=== PATIENT | female | born 1965 | race Caucasian/White ===

== ENCOUNTER 2019-12-05 20:12 | Emergency (ER) | payer BC, OTHER ==
[2019-12-05] MEDS ORDERED: methylPREDNISolone Sodium Succinate 125 MG/2 ML SDV IVPUSH ONE (20:18)
[2019-12-05] MEDS ORDERED: EPINEPHrine 1 MG/ML SDV SUBCUT ONE (20:18)
--- NOTE | 2019-12-05 20:51 | EDM.PDOC ---
ED HPI GENERAL MEDICAL PROBLEM - General Chief Complaint: Allergic Reaction Stated Complaint: BEE STING Time Seen by Provider: 12/05/19 20:30 Source of Information: Reports: Patient, Family History Limitations: Reports: No Limitations - History of Present Illness INITIAL COMMENTS - FREE TEXT/NARRATIVE: 54-year-old female who was stung on the back of the left leg 1-1/2 hours ago by a bee or wasp, now has some systemic symptoms. It started within 10 to 15 minutes with burning in her hands, she now has shallow scattered hives on her arms abdomen and upper chest. She feels like her throat is tight but not short of breath, no wheezing or cough. Denies dizziness or lightheadedness but she is very anxious. She has had no previous reactions to bee stings. She is otherwise healthy. Onset: Sudden Duration: Hour(s): (1-1/2 hours ago) Location: Reports: Other (Initial sting was on the back of her left leg) Associated Symptoms: Reports: Other (Very anxious, feels a tightening in her throat and having generalized macular erythema with some hives). 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: Psychiatric History: Reports: Anxiety Endocrine/Metabolic History: Reports: Hypothyroidism - Past Surgical History Female Surgical History: Reports: Section, Hysterectomy Social & Family History - Tobacco Use Smoking Status *Q: Never Smoker - Caffeine Use Caffeine Use: Reports: Coffee - Alcohol Use Days Per Week of Alcohol Use: 2 Number of Drinks Per Day: 2 Total Drinks Per Week: 4 - Recreational Drug Use Recreational Drug Use: No ED ROS ALLERGIC REACTION - Review of Systems Review Of Systems: See Below Constitutional: Denies: Fever, Chills HEENT: Reports: Other (Sensation of tightness) Respiratory: Denies: Shortness of Breath, Wheezing Cardiovascular: Denies: Chest Pain Skin: Reports: Erythema, Urticaria Neurological: Reports: No Symptoms. Denies: Headache Psychiatric: Reports: Anxiety ED EXAM GENERAL NO PERIP PULSE - Physical Exam Exam: See Below Exam Limited By: No Limitations General Appearance: Alert, No Apparent Distress Eye Exam: Bilateral Eye: Normal Inspection Throat/Mouth: Normal Inspection Head: Atraumatic Respiratory/Chest: No Respiratory Distress, Lungs Clear Cardiovascular: Regular Rate, Rhythm Extremities: Other (Small sting nikos on the back of the left calf, no surrounding erythema.) Psychiatric: Anxious Skin Exam: Other (Generalized macular erythematous lesions on the arms abdomen and upper chest with some embedded urticarial lesions, very mild) Course - Vital Signs Last Recorded V/S: Last Vital Signs Temp 96.9 F 12/05/19 20:27 Pulse 90 12/05/19 21:12 Resp 20 12/05/19 21:12 BP 111/64 12/05/19 21:12 Pulse Ox 96 12/05/19 21:12 - Orders/Labs/Meds Meds: Medications Discontinued Medications Generic Name Dose Route Start Last Admin Trade Name Tamika PRN Reason Stop Dose Admin Epinephrine HCl 0.3 mg 12/05/19 20:18 12/05/19 20:19 Adrenalin SUBCUT 12/05/19 20:19 0.3 mg ONETIME ONE Administration Methylprednisolone Sodium Succinate 125 mg 12/05/19 20:18 12/05/19 20:26 Solu-Medrol IVPUSH 12/05/19 20:19 125 mg ONETIME ONE Administration - Re-Assessments/Exams Free Text/Narrative Re-Assessment/Exam: 12/05/19 20:51 Patient was given 0.3 mg of epinephrine subcutaneously, and IV started and she was also given 125 mg of Solu-Medrol. She is already taken 75 mg of oral Benadryl. She remained stable. 12/05/19 21:05 Patient had fairly rapid resolution of her rash and symptoms after the epinephrine, was observed for an additional 45 minutes and was stable. She was given a prescription for an EpiPen to fill tomorrow and will continue Benadryl as needed for persistent symptoms. Departure - Departure Time of Disposition: 21:22 Disposition: Home, Self-Care 01 Clinical Impression: Allergic reaction to bee sting - Discharge Information Instructions: Bee, Wasp, or Hornet Sting, Adult Referrals: PCP,None [Primary Care Provider] - Forms: ED Department Discharge Care Plan Goals: Repeat Benadryl 50 mg every 4-6 hours if persistent rash or itching, and return if worsening such as difficulty breathing or other concerns. Fill EpiPen tomorrow and use as directed. Sepsis Event Note (ED) - Evaluation Sepsis Screening Result: No Definite Risk - Focused Exam Vital Signs: Vital Signs Temp Pulse Resp BP Pulse Ox 12/05/19 21:12 90 20 111/64 96 12/05/19 20:27 96.9 F 82 21 H 112/50 L 96
== END 2019-12-05 21:22 | disposition home or self-care (01) ==
LOC: JP.ED 20:12
DX: T63.441A Toxic effect of venom of bees, accidental (unintentional), initial encounter (principal); K21.9 Gastro-esophageal reflux disease without esophagitis; E03.9 Hypothyroidism, unspecified; F41.9 Anxiety disorder, unspecified; Z88.1 Allergy status to other antibiotic agents; Z79.899 Other long term (current) drug therapy
CPT/HCPCS: 96372; 96374; 99282; J0171; J2930